=== PATIENT | male | born 1960 | race American Indian/Alaskan Native ===

== ENCOUNTER 2018-12-25 13:26 | Emergency (ER) | payer BC ==
[~2018-12-25] VITALS: Ht 175.3 cm; Wt 102.1 kg
[~2018-12-25 13:26] MED LIST: ATOR10 PO; CHOL10002; CIPR500 PO; CIPRO500 MG PO; DIAZ5 PO; Daily Multiple1 EACH PO; Flagyl500 MG PO; Flomax0.4 MG PO; HYDACE10B PO; Hair, Skin & N1 EACH; IBUPROFEN200 MG PO; LOSHYD100 PO; METF500 PO; METR500 PO; Norco 5-325 Ta1 EACH PO; ONDA4 PO; ONDA4ODT MM; Percocet 5-3251 EACH PO; TAMS.4ER PO; TRAM50 PO; Zofran Odt4 MG SL
[2018-12-25] MEDS ORDERED: Percocet 5-3251 EACH PO (14:49)
== END 2018-12-25 14:52 | disposition home or self-care (01) ==
LOC: ER 13:26
DX: S20.212A Contusion of left front wall of thorax, initial encounter (principal); W22.8XXA Striking against or struck by other objects, initial encounter; Z79.899 Other long term (current) drug therapy; I10 Essential (primary) hypertension; F41.9 Anxiety disorder, unspecified
CPT/HCPCS: 71101; 99283-25

== ENCOUNTER 2019-05-01 06:24 | Day surgery (SDC) | payer BC ==
[~2019-05-01] VITALS: Ht 175.3 cm; Wt 100.7 kg
--- NOTE | 2019-05-01 09:52 | NUR ---
05/01/19 0952 Paddy Willard PT DENIES ANY PAIN AT THIS TIME. PT REPORTS NAUSEA. PT GIVEN 10MG REGLAN TO HELP. PT REQUESTING NOTHING TO EAT OR DRINK AT THIS TIME. VSS. FAMILY IN ROOM WITH PT. WILL CONTINUE TO MONITOR PT.
--- NOTE | 2019-05-01 10:31 | NUR ---
05/01/19 1031 Charlotte Mejia MEDICATED PT WITH 2.5MG VALIUM PO. WARM BLANKET PROVIDED.
== END 2019-05-01 11:20 | disposition home or self-care (01) ==
LOC: ORSCSDS 06:24
PROVIDERS: Orthopaedic Surgery
PROC: 0LQ14ZZ Repair Right Shoulder Tendon, Percutaneous Endoscopic Approach (ICD-10-PCS; principal; 2019-05-01 07:30)
PROC: 0RNJ4ZZ Release Right Shoulder Joint, Percutaneous Endoscopic Approach (ICD-10-PCS; principal; 2019-05-01 07:30)
PROC: 0RBJ4ZZ Excision of Right Shoulder Joint, Percutaneous Endoscopic Approach (ICD-10-PCS; principal; 2019-05-01 07:30)
DX: M75.41 Impingement syndrome of right shoulder (principal); M75.111 Incomplete rotator cuff tear or rupture of right shoulder, not specified as traumatic; S43.431A Superior glenoid labrum lesion of right shoulder, initial encounter; I10 Essential (primary) hypertension; E11.9 Type 2 diabetes mellitus without complications; E66.9 Obesity, unspecified; Z68.32 Body mass index [BMI] 32.0-32.9, adult; Z79.899 Other long term (current) drug therapy
CPT/HCPCS: 82947; A9270-GY; J0171; J0690; J1100; J1885; J2250; J2405; J2704; J2765; J3010; J7120

== ENCOUNTER 2020-07-30 07:52 | Day surgery (SDC) | payer BC ==
[~2020-07-30] VITALS: Ht 175.3 cm; Wt 96.5 kg
[2020-07-30] MEDS ORDERED: METF500 PO (08:49)
== END 2020-07-30 10:25 | disposition home or self-care (01) ==
LOC: ORSCSDS 07:52
PROVIDERS: Surgery
PROC: 0DJD8ZZ Inspection of Lower Intestinal Tract, Via Natural or Artificial Opening Endoscopic (ICD-10-PCS; principal; 2020-07-30 09:15)
DX: Z12.11 Encounter for screening for malignant neoplasm of colon (principal); Z86.010 Personal history of colon polyps; I10 Essential (primary) hypertension; E78.5 Hyperlipidemia, unspecified; E11.9 Type 2 diabetes mellitus without complications; Z79.84 Long term (current) use of oral hypoglycemic drugs; Z79.899 Other long term (current) drug therapy
CPT/HCPCS: J2405; J2704; J7120

== ENCOUNTER 2021-06-10 09:20 | Day surgery (SDC) | payer BC ==
[~2021-06-10] VITALS: Ht 175.3 cm; Wt 102.7 kg
[~2021-06-10 09:20] MED LIST changes: +LOSARTAN-HCTZ1 EACH PO; -LOSHYD100 PO
--- NOTE | 2021-06-10 09:40 | NUR ---
History, Chart, Medications and Allergies reviewed before start of procedure. Patient confirms NPO status and agrees with scheduled surgery. Patient States Post-Procedure ride home has been arranged with his , Ivelisse.
--- NOTE | 2021-06-10 13:37 | NUR ---
Discharge instructions reviewed with patient. Patient verbalizes understanding. Copy given to patient to take home. GUAZE DRESSING WITH [employer] DRAINAGE. Patient States Post-Procedure ride home has been arranged. Discharged via wheelchair to private car for ride home.
== END 2021-06-10 13:15 | disposition home or self-care (01) ==
LOC: ORSCMMR 09:20 → ORSCSDS 11:00 → ORSCMMR 12:30
PROVIDERS: Surgery
PROC: 06BY0ZC Excision of Hemorrhoidal Plexus, Open Approach (ICD-10-PCS; principal; 2021-06-10 11:00)
DX: K64.5 Perianal venous thrombosis (principal); K64.1 Second degree hemorrhoids; Z86.010 Personal history of colon polyps; E78.5 Hyperlipidemia, unspecified; I10 Essential (primary) hypertension; E11.9 Type 2 diabetes mellitus without complications; H81.09 Meniere's disease, unspecified ear; Z79.899 Other long term (current) drug therapy; Z79.84 Long term (current) use of oral hypoglycemic drugs
CPT/HCPCS: 82947; 88304; A9270; J0330; J1100; J2405; J2704; J3010; J7120

== ENCOUNTER 2021-06-18 17:33 | Emergency (ER) | payer BC ==
[~2021-06-18] VITALS: Ht 175.3 cm; Wt 103.0 kg
[2021-06-18] MEDS ORDERED: Adult Glycerin1 EACH (17:53)
[2021-06-18] MEDS ORDERED: DOCU100 (17:53)
== END 2021-06-18 20:50 | disposition home or self-care (01) ==
LOC: ER 17:33
DX: G89.18 Other acute postprocedural pain (principal); K62.89 Other specified diseases of anus and rectum; K59.00 Constipation, unspecified; Z91.048 Other nonmedicinal substance allergy status; Z79.84 Long term (current) use of oral hypoglycemic drugs; Z79.899 Other long term (current) drug therapy; I10 Essential (primary) hypertension; E78.00 Pure hypercholesterolemia, unspecified; F41.9 Anxiety disorder, unspecified
CPT/HCPCS: 74018; 96374; 96375; 96376; 99283-25; A9270; J1170

== ENCOUNTER → 2024-07-24 | Outpatient (CLI) | payer OTHER ==
[~2024-07-24] MED LIST changes: +Adult Glycerin1 EACH; +DOCU100; +GLYB2.5 PO
[2024-07-24 14:55] LABS: BASOPHILS ABSOLUTE AUTO 0.08 K/mm3 (0.00-0.23); BASOPHILS PERCENT AUTO 1 % (0-2); EOSINOPHILS ABSOLUTE AUTO 0.14 K/mm3 (0.00-0.68); EOSINOPHILS PERCENT AUTO 2 % (0-6); Hematocrit 44.7 % (37.0-53.0); Hemoglobin 15.5 g/dL (13.5-17.5); IMMATURE GRAN ABSOLUTE AUTO 0.02 K/mm3 (0.00-0.10); IMMATURE GRAN PERCENT AUTO 0 % (0-1); LYMPHOCYTES ABSOLUTE AUTO 1.83 K/mm3 (0.84-5.20); LYMPHOCYTES PERCENT AUTO 23 % (21-46); MONOCYTES ABSOLUTE AUTO 0.75 K/mm3 (0.16-1.47); MONOCYTES PERCENT AUTO 9 % (4-13); Mean Corpuscular HGB 31.9 pg (26.0-34.0); Mean Corpuscular HGB Conc 34.7 g/dL (31.5-36.5); Mean Corpuscular Volume 92 fL (80-100); Mean Platelet Volume 9.8 fL (9.1-12.4); NEUTROPHILS ABSOLUTE AUTO 5.19 K/mm3 (1.96-9.15); NEUTROPHILS PERCENT AUTO 65 % (41-73); Platelet Count 313 K/mm3 (150-400); RDW Coefficient Variation 11.9 % (11.7-14.2); RDW Standard Deviation 39.8 fL (35.1-46.3); Red Blood Cell Count 4.86 M/mm3 (4.30-5.90); White Blood Cell Count 8.01 K/mm3 (4.00-11.30)
[2024-07-24 15:14] LABS: Alanine Aminotransfer (ALT/SGP 40 U/L (12-78); Albumin, Blood 3.7 g/dL (3.4-5.0); Albumin/Globulin Ratio 1.1 (0.8-1.8); Alk Phos 42 U/L (50-136); Anion Gap 9 mmol/L (3-11); Aspartate Aminotrans (AST/SGOT 25 U/L (12-37); Bilirubin, Total 0.8 mg/dL (0.1-1.0); Blood Urea Nitrogen 19 mg/dL (8-24); Bun/Creatinine Ratio 24.6 (12.0-20.0); CHOL/HDL RATIO 3.2; CO2, Blood 28 mmol/L (21-32); Calcium, Blood 9.3 mg/dL (8.5-10.1); Chloride, Blood 107 mmol/L (98-108); Cholesterol 139 mg/dL (50-200); Creatinine, Blood 0.77 mg/dL (0.60-1.20); Globulin, Blood 3.3 g/dL (2.2-4.0); Glomerular Filtration Rate 99 (60-); Glucose, Blood 219 mg/dL (70-99); HDL Cholesterol 43 mg/dL (>39); LDL/HDL RATIO 1.4; Low Density Lipoprotein Chol 59 mg/dL (0-110); PSA, %Free 19.7 %; Potassium, Blood 4.3 mmol/L (3.5-5.5); Sodium, Blood 140 mmol/L (136-145); Triglycerides 186 mg/dL (30-160); Very Low Density Lipoprot Chol 37 mg/dL (6-32)
[2024-07-24 15:27] LABS: Microalb/Creat Ratio UR, Rand 7.195 mg/g (0.000-30.000); Microalbumin, Random Urine 11.8 mg/L (0.000-20.000)
== END | disposition home or self-care (01) ==
LOC: LAB SHORT 12:44 → LAB 12:44
PROVIDERS: Nurse Practitioner Family
DX: E11.65 Type 2 diabetes mellitus with hyperglycemia (principal); I10 Essential (primary) hypertension; N40.0 Benign prostatic hyperplasia without lower urinary tract symptoms
CPT/HCPCS: 80053; 80061; 82043; 82570; 83036; 84153; 84154; 85025

== ENCOUNTER 2024-07-31 12:27 | Observation (INO) | payer OTHER ==
[~2024-07-31] VITALS: Ht 175.3 cm; Wt 103.3 kg
[~2024-07-31 12:27] MED LIST changes: -GLYB2.5 PO
[2024-07-31] MEDS ORDERED: Ondansetron HCl 2 MG / ML 2ML Vial IV PRN ×2 (12:45→16:00)
[2024-07-31 13:09] LABS: BASOPHILS ABSOLUTE AUTO 0.06 K/mm3 (0.00-0.23); BASOPHILS PERCENT AUTO 1 % (0-2); EOSINOPHILS PERCENT AUTO 1 % (0-6); Hematocrit 41.6 % (37.0-53.0); Hemoglobin 14.6 g/dL (13.5-17.5); IMMATURE GRAN ABSOLUTE AUTO 0.02 K/mm3 (0.00-0.10); IMMATURE GRAN PERCENT AUTO 0 % (0-1); LYMPHOCYTES ABSOLUTE AUTO 1.93 K/mm3 (0.84-5.20); LYMPHOCYTES PERCENT AUTO 21 % (21-46); MONOCYTES ABSOLUTE AUTO 0.75 K/mm3 (0.16-1.47); MONOCYTES PERCENT AUTO 8 % (4-13); Mean Corpuscular HGB 32.3 pg (26.0-34.0); Mean Corpuscular HGB Conc 35.1 g/dL (31.5-36.5); Mean Corpuscular Volume 92 fL (80-100); Mean Platelet Volume 9.6 fL (9.1-12.4); NEUTROPHILS ABSOLUTE AUTO 6.51 K/mm3 (1.96-9.15); NEUTROPHILS PERCENT AUTO 70 % (41-73); Platelet Count 285 K/mm3 (150-400); RDW Coefficient Variation 11.9 % (11.7-14.2); RDW Standard Deviation 39.8 fL (35.1-46.3); Red Blood Cell Count 4.52 M/mm3 (4.30-5.90); White Blood Cell Count 9.37 K/mm3 (4.00-11.30)
[2024-07-31 13:33] LABS: Albumin, Blood 3.4 g/dL (3.4-5.0); Bilirubin, Total 0.7 mg/dL (0.1-1.0); Bun/Creatinine Ratio 23.4 (12.0-20.0); Creatinine, Blood 0.68 mg/dL (0.60-1.20); Globulin, Blood 3.5 g/dL (2.2-4.0); Potassium, Blood 4.2 mmol/L (3.5-5.5); Total Protein, Blood 6.9 g/dL (6.4-8.2)
[2024-07-31] MEDS ORDERED: Nitroglycerin 1 INCH/GM PKT TOP ONE (14:25)
[2024-07-31] MEDS ORDERED: Acetaminophen 500 MG Tab PO ONE (15:30)
[2024-07-31] MEDS ORDERED: GLYB2.5 PO (15:34)
[2024-07-31] MEDS ORDERED: Diazepam 5 MG Tab PO ONE (15:40)
[2024-07-31] MEDS ORDERED: FLU VACC TS2024-25(6MOS UP)/PF 45 MCG/0.5 ML SYRINGE IM PRN (16:00)
[2024-07-31] MEDS ORDERED: Nitroglycerin 0.4 MG SUBL SL PRN (16:45)
[2024-07-31] MEDS ORDERED: Multivitamins 1 Tab PO SCH (17:00)
--- NOTE | 2024-07-31 18:29 | NUR ---
RN RECEIVED REPORT FROM ORLIN IN THE ER. PT IS ADMITTED FOR CHEST PAIN. CP STARTED TODAY ATR 11:30AM, HE WAS WATCHING TV AND REPORTS FEELING A HEAVINESS IN HIS CHEST. HE WAS TRANSPORTED VIA EMS TO THE ER. ENROUTE HE RECEIVED NITRO/ASA AND HAD GOOD RESULTS. IN THE ER HE HAS REMAINED WITH VSS, INDEPENDENT IN THE ROOM, AND A&O X4 PER NURSE REPORT. HE HAS ORDERS FOR TELE. ROOM AIR. 18G IV TO THE LEFT AC. CHEST XR NORMAL. FIRST TROPONIN WAS 20, REPEAT TROPONIN WAS 22. PMH: HTN, HLD, ANXIETY, DIVERTICULITIS, MENIERE'S DISEASE, TYPE 2 DIABETES CONTROLLED WITH METFORMIN. THIS RN WILL MONITOR PT AND GIVE REPORT TO ONCOMING NURSE.
[2024-07-31 18:37] VITALS: BP 137/78
--- NOTE | 2024-07-31 18:37 | NUR ---
183: MORGAN ARRIVED TO THE MEDICAL FLOOR VIA ER GURNEY PROPELLED BY BUILDING SERVICES TECHNICIAN. HE IS RATING STERNAL CHEST PAIN 09/01. HEART RHYTHYM REGULAR TO AUSCULTATION. PT IS A&O X4, AGREEABLE TO CARE AND PLEASANT WITH STAFF. HE IS ORIENTED TO ROOM AND TO PROCEDURES TO PREVENT FALL, AND TO USE THE CALL LIGHT.
[2024-07-31] MEDS ORDERED: Acetaminophen 325 MG TABLET PO PRN (20:20)
[2024-07-31] MEDS ORDERED: Diazepam 5 MG Tab PO SCH (21:00)
[2024-07-31] MEDS ORDERED: Atorvastatin 10 MG Tab PO SCH (21:00)
[2024-07-31] MEDS ORDERED: Losartan/HCTZ 50-12.5 TAB PO SCH (21:00)
[2024-08-01 04:00] VITALS: BP 126/82
--- NOTE | 2024-08-01 04:15 | NUR ---
SHIFT SUMMARY. PATIENT IS A&OX4. PATIENT IS INDEPENDENT WITH STEADY GAIT. PATIENT ADMITTED FOR CHEST PAIN-PATIENTS PAIN IMPROVED T/O NIGHT AND PATIENT DENIES ANY CHEST PAIN AT THIS TIME. TELEMETRY IS ON c LEADS IN PLACE-NO EVENTED NOTED THIS SHIFT. PATIENTS HAS BEEN NPO SINCE MIDNIGHT FOR STRESS TEST. BED IS LOCKED IN THE LOWEST POSITION c CALL LIGHT IN REACH. CARE IS ONGOING.
[2024-08-01 07:21] VITALS: BP 136/79
[2024-08-01] MEDS ORDERED: Insulin Human Lispro 100 Units/ML 3ML Syringe SC SCH (07:30)
[2024-08-01] MEDS ORDERED: Enoxaparin 40 MG/0.4 ML SYR SC SCH (09:00)
[2024-08-01] MEDS ORDERED: Aspirin 81 MG Chew PO SCH (09:00)
--- NOTE | 2024-08-01 11:36 | NUR ---
PT IS BEING MONITORED FOR CHEST PAIN. AT THIS TIME, PT IS DENYING ANY CHEST HEAVINESS. HE REPORTS THAT PAIN HAS MIGRATED TO THE RIGHT CHEST, ATTRIBUTES IT TO SLEEPING IN HOSPITAL BED, RATING 1/10. AFTER BREAKFAST, RN WILL HOLD LUNCH TRAY PRIOR TO STRESS TEST. ADVISED PT AND AGENCY MANAGER NO CAFFEINE/CHOCOLATE/SODA/TEA PRIOR TO TEST. PT IS AGREEABLE AND STATES UNDERSTANDING. ROOM AIR. IV IN LEFT AC, SALINE LOCKED. BEDREST WITH BP PRIVILEGES. PMH OF ANXIETY. PT STATES HE IS NOT FEELING LIKE HE NEEDS A PRN FOR ANXIETY AT THIS TIME. ABLE TO USE CALL LIGHT APPROPRIATELY. a&O X4.
[2024-08-01] MEDS ORDERED: Regadenoson 0.4 MG/5 ML SYRINGE ONE (12:00)
--- NOTE | 2024-08-01 14:22 | NUR ---
CALL FROM [employer] STATING PATIENT APPEARED TO BE IN [place]ORS[place]. LET HER KNOW PATIENT WAS CURRENTLY HAVIN STRESS TEST DONE.
[2024-08-01 16:06] VITALS: BP 138/82
--- NOTE | 2024-08-01 17:47 | NUR ---
CALL FROM DR SILVA WANTING RESULTS TO STRESS TEST. RESULTS NOT YET AVAILABLE.
--- NOTE | 2024-08-01 18:13 | NUR ---
END OF SHIFT SUMMARY: A&Ox4. PLEASANT AND COOPERATIVE WITH CARE. CALLS APPROPRIATELY AND IS ABLE TO ADVOCATE NEEDS EFFECTIVELY. STRESS TEST COMPLETED TODAY. REPORT OF POSSIBLE TORSADAS DURING STRESS TEST. AWAITING RESULTS AND WILL NOTIFY DR SILVA FOR POTENTIAL DC TODAY. BED IN LOWEST POSITION, CALL LIGHT WITHIN REACH, ALL NEEDS MET. REPORT TO ONCOMING NURSE.
--- NOTE | 2024-08-01 18:37 | NUR ---
NOTIFIED DR SILVA OF STRESS TEST RESULTS BECOMING AVAILABLE. HE IS STILL ON CAMPUS; WILL REVIEW BEDSIDE WITH PATIENT.
--- NOTE | 2024-08-01 19:17 | NUR ---
PATIENT DISCHARGED. PATIENT DISCHARGED BY DAYSHIFT MATTHEW GAVIN-THIS RN REMOVED IV AND PATIENT WALKED OUT OF HOSPITAL WITH AND DAUGHTER. PATIENT TO LEAVE HOSPITAL BY PERSONAL VEHICLE. PATIENT OFFERED A WHEEL CHAIR FOR DISCHARGE-PATIENT REFUSED AND PREFERRED TO WALK OUT. PATIENT LEFT FLOOR WITH STEADY GAIT.
== END 2024-08-01 19:25 | disposition home or self-care (01) ==
LOC: ER 12:27 → ERHOLD 12:28 → MEDS 18:34
PROVIDERS: Emergency Medicine; ADMIT Internal Medicine
DX: R07.89 Other chest pain (principal); E11.9 Type 2 diabetes mellitus without complications; I10 Essential (primary) hypertension; H81.09 Meniere's disease, unspecified ear; Z91.048 Other nonmedicinal substance allergy status; E78.00 Pure hypercholesterolemia, unspecified; Z90.49 Acquired absence of other specified parts of digestive tract; Z79.84 Long term (current) use of oral hypoglycemic drugs; Z79.899 Other long term (current) drug therapy
CPT/HCPCS: 36415; 71046; 78452; 80053; 82947; 83690; 84484; 85025; 93005; 93010; 93017; 96372; 99285-25; A9270; A9500; G0378; J1650; J2785

== ENCOUNTER 2024-08-20 09:56 | Inpatient (IN) | payer OTHER ==
[~2024-08-20] VITALS: Ht 170.2 cm; Wt 100.2 kg
[~2024-08-20 09:56] MED LIST changes: +ATOR40TA PO; +GLYB2.5 PO
[2024-08-20 10:27] LABS: BASOPHILS ABSOLUTE AUTO 0.09 K/mm3 (0.00-0.23); BASOPHILS PERCENT AUTO 1 % (0-2); EOSINOPHILS ABSOLUTE AUTO 0.15 K/mm3 (0.00-0.68); EOSINOPHILS PERCENT AUTO 2 % (0-6); Hematocrit 40.1 % (37.0-53.0); Hemoglobin 14.2 g/dL (13.5-17.5); IMMATURE GRAN ABSOLUTE AUTO 0.03 K/mm3 (0.00-0.10); IMMATURE GRAN PERCENT AUTO 0 % (0-1); LYMPHOCYTES ABSOLUTE AUTO 1.69 K/mm3 (0.84-5.20); LYMPHOCYTES PERCENT AUTO 19 % (21-46); MONOCYTES PERCENT AUTO 9 % (4-13); Mean Corpuscular HGB 32.4 pg (26.0-34.0); Mean Corpuscular HGB Conc 35.4 g/dL (31.5-36.5); Mean Corpuscular Volume 92 fL (80-100); NEUTROPHILS ABSOLUTE AUTO 6.21 K/mm3 (1.96-9.15); NEUTROPHILS PERCENT AUTO 69 % (41-73); Platelet Count 224 K/mm3 (150-400); RDW Coefficient Variation 11.9 % (11.7-14.2); RDW Standard Deviation 39.5 fL (35.1-46.3); Red Blood Cell Count 4.38 M/mm3 (4.30-5.90); White Blood Cell Count 8.97 K/mm3 (4.00-11.30)
[2024-08-20 10:46] LABS: Albumin, Blood 3.6 g/dL (3.4-5.0); Albumin/Globulin Ratio 1.1 (0.8-1.8); Bilirubin, Total 0.7 mg/dL (0.1-1.0); Bun/Creatinine Ratio 27.9 (12.0-20.0); Calcium, Blood 9.2 mg/dL (8.5-10.1); Creatinine, Blood 0.68 mg/dL (0.60-1.20); Globulin, Blood 3.3 g/dL (2.2-4.0); Potassium, Blood 4.1 mmol/L (3.5-5.5); Total Protein, Blood 6.9 g/dL (6.4-8.2)
[2024-08-20] MEDS ORDERED: Nitroglycerin 0.4 MG SUBL SL PRN (13:40)
[2024-08-20] MEDS ORDERED: FLU VACC TS2024-25(6MOS UP)/PF 45 MCG/0.5 ML SYRINGE IM SCH (15:35)
[2024-08-20] MEDS ORDERED: Acetaminophen 325 MG TABLET PO PRN (15:45)
[2024-08-20] MEDS ORDERED: Lactated Ringer's 1,000 ML IV SCH (16:00)
[2024-08-20] MEDS ORDERED: Insulin Human Lispro 100 Units/ML 3ML Syringe SC SCH (16:30)
[2024-08-20] MEDS ORDERED: LOSARTAN-HCTZ1 EAC5 PO (18:04)
[2024-08-20 18:05] VITALS: BP 119/82
--- NOTE | 2024-08-20 18:48 | NUR ---
ADMISSION: PT IS A NEW ADMIT, ARRIVING FROM ER AT APPROX 1755. PT STANDS AND TRANSFERS SELF, IS A&Ox4, ANSWERS QUESTIONS APPROPRIATELY. PT DENIES SOB, O2 SATS >95% ON RA. PT DENIES CP AT THIS TIME, MEDICATED IN ER x1 W/NITRO FOR C/O L SIDE CP, PT GIVEN TYENOL UPON ARRIVAL FOR C/O RESIDUAL HEADACHE. TROPONINS TRENDING UP, CARDIOLOGY CONSULT HAS BEEN CALLED IN, PT's BKFST TRAY TO BE HELD UNTIL CONSULT COMPLETED TOMORROW AM. AT THIS TIME, PT IS SITTING UP IN BED W/MEAL TRAY. CALL LIGHT IN REACH.
--- NOTE | 2024-08-20 20:20 | NUR ---
CRITICAL TROPONIN 359. AWARE. PT'S TROPONIN PEAKED ON PREVIOUS LAB. WILL CONTINUE TO TREND TROPONINS FOR NOW.
[2024-08-20] MEDS ORDERED: Docusate Sodium 100 MG Cap PO SCH (21:00)
[2024-08-20] MEDS ORDERED: Heparin Sodium 5000 Units/ML 1ML MDV SC SCH (21:00)
--- NOTE | 2024-08-20 22:52 | NUR ---
CRITICAL TROPONIN 257. CONTINUES TO TREND DOWN. AWARE.
[2024-08-20 23:15] VITALS: BP 130/92
[2024-08-21] VITALS (14 sets, daily range): BP systolic 108–156; BP diastolic 67–95
[2024-08-21 01:40] LABS: BASOPHILS ABSOLUTE AUTO 0.07 K/mm3 (0.00-0.23); BASOPHILS PERCENT AUTO 1 % (0-2); EOSINOPHILS ABSOLUTE AUTO 0.25 K/mm3 (0.00-0.68); EOSINOPHILS PERCENT AUTO 3 % (0-6); Hematocrit 40.5 % (37.0-53.0); Hemoglobin 14.3 g/dL (13.5-17.5); IMMATURE GRAN ABSOLUTE AUTO 0.05 K/mm3 (0.00-0.10); IMMATURE GRAN PERCENT AUTO 1 % (0-1); LYMPHOCYTES ABSOLUTE AUTO 2.33 K/mm3 (0.84-5.20); LYMPHOCYTES PERCENT AUTO 27 % (21-46); MONOCYTES ABSOLUTE AUTO 0.83 K/mm3 (0.16-1.47); MONOCYTES PERCENT AUTO 9 % (4-13); Mean Corpuscular HGB 32.1 pg (26.0-34.0); Mean Corpuscular HGB Conc 35.3 g/dL (31.5-36.5); Mean Corpuscular Volume 91 fL (80-100); NEUTROPHILS ABSOLUTE AUTO 5.27 K/mm3 (1.96-9.15); NEUTROPHILS PERCENT AUTO 60 % (41-73); Platelet Count 229 K/mm3 (150-400); RDW Coefficient Variation 11.9 % (11.7-14.2); RDW Standard Deviation 39.8 fL (35.1-46.3); Red Blood Cell Count 4.45 M/mm3 (4.30-5.90)
[2024-08-21 01:47] LABS: Albumin, Blood 3.3 g/dL (3.4-5.0); Bilirubin, Total 0.8 mg/dL (0.1-1.0); Bun/Creatinine Ratio 20.4 (12.0-20.0); Creatinine, Blood 0.69 mg/dL (0.60-1.20); Globulin, Blood 3.2 g/dL (2.2-4.0); Potassium, Blood 3.8 mmol/L (3.5-5.5); Total Protein, Blood 6.5 g/dL (6.4-8.2)
--- NOTE | 2024-08-21 02:22 | NUR ---
CRITICAL TROPONIN 1.73 . AWARE.
[2024-08-21] MEDS ORDERED: Atorvastatin 40 MG Tab PO SCH (09:00)
[2024-08-21] MEDS ORDERED: Diazepam 5 MG Tab PO SCH (09:00)
[2024-08-21] MEDS ORDERED: Nitroglycerin 2 MG/20 ML BTL ONE (12:17)
[2024-08-21] MEDS ORDERED: Verapamil HCL 2.5 MG/ML 2ML Injection ONE (12:17)
[2024-08-21] MEDS ORDERED: Heparin Sodium 1000 Units/ML 10ML MDV ONE ×2 (12:17→12:27)
[2024-08-21] MEDS ORDERED: NS 250 ML IV ONE (12:17)
[2024-08-21] MEDS ORDERED: NS 1,000 ML IV ONE ×2 (12:17→12:24)
[2024-08-21] MEDS ORDERED: Midazolam HCl 1MG / ML 2ML Vial ONE (12:24)
[2024-08-21] MEDS ORDERED: FentaNYL Citrate 50 MCG/ML 2 ML Injection ONE (12:24)
--- NOTE | 2024-08-21 12:51 | NUR ---
PT TO SWEEPING COMPOUND BLENDER
--- NOTE | 2024-08-21 18:21 | NUR ---
SHIFT SUMMARY: PT A&Ox4, ANSWERS QUESTIONS APPROPRIATELY, COOPERATIVE W/CARE. PT DENIES SOB, O2 SATS >93% ON RA. PT REPORTED MILD CHEST PAIN EARLIER IN THE SHIFT, STATED IT WAS STILL IMPROVED COMPARED TO YESTERDAY, DECLINED PRN MEDICATION. PT TO/FROM GEOTHERMAL HVAC TECHNICIAN TODAY, PLAN FOR MEDICAL MANAGMENT, ECHO COMPLETED AT BEDSIDE, R RADIAL SITE HAS BEEN RECOVERED WNL, ARMBOARD CONTINUES IN PLACE OVER TRANSPARENT DRESSING. PT CONTINUES INDEPENDENT IN ROOM, IS CAREFUL OF HIS RADIAL SITE. 2 LOOSE BMs TODAY, PROVIDER AWARE. AT THIS TIME, PT IS RESTING BED W/CALL LIGHT IN REACH.
[2024-08-22] VITALS: BP 110/71
[2024-08-22 04:03] LABS: BASOPHILS ABSOLUTE AUTO 0.07 K/mm3 (0.00-0.23); BASOPHILS PERCENT AUTO 1 % (0-2); EOSINOPHILS ABSOLUTE AUTO 0.23 K/mm3 (0.00-0.68); EOSINOPHILS PERCENT AUTO 2 % (0-6); Hematocrit 42.2 % (37.0-53.0); Hemoglobin 14.9 g/dL (13.5-17.5); IMMATURE GRAN ABSOLUTE AUTO 0.03 K/mm3 (0.00-0.10); IMMATURE GRAN PERCENT AUTO 0 % (0-1); LYMPHOCYTES ABSOLUTE AUTO 2.12 K/mm3 (0.84-5.20); LYMPHOCYTES PERCENT AUTO 22 % (21-46); MONOCYTES ABSOLUTE AUTO 0.93 K/mm3 (0.16-1.47); MONOCYTES PERCENT AUTO 9 % (4-13); Mean Corpuscular HGB 32.5 pg (26.0-34.0); Mean Corpuscular HGB Conc 35.3 g/dL (31.5-36.5); Mean Corpuscular Volume 92 fL (80-100); NEUTROPHILS ABSOLUTE AUTO 6.49 K/mm3 (1.96-9.15); NEUTROPHILS PERCENT AUTO 66 % (41-73); Platelet Count 237 K/mm3 (150-400); RDW Coefficient Variation 11.9 % (11.7-14.2); RDW Standard Deviation 39.8 fL (35.1-46.3); Red Blood Cell Count 4.59 M/mm3 (4.30-5.90); White Blood Cell Count 9.87 K/mm3 (4.00-11.30)
[2024-08-22 04:27] LABS: Albumin, Blood 3.3 g/dL (3.4-5.0); Albumin/Globulin Ratio 0.9 (0.8-1.8); Bilirubin, Total 0.9 mg/dL (0.1-1.0); Creatinine, Blood 0.9 mg/dL (0.60-1.20); Globulin, Blood 3.5 g/dL (2.2-4.0); Potassium, Blood 4.5 mmol/L (3.5-5.5); Total Protein, Blood 6.8 g/dL (6.4-8.2)
[2024-08-22 08:45] VITALS: BP 141/82
[2024-08-22] MEDS ORDERED: Isosorbide Mononitrate 30 MG TABCR PO SCH (09:00)
--- NOTE | 2024-08-22 09:06 | NUR ---
NURSING PCU DAYSHIFT: Assumed care of pt at approx 0700. A/O, very pleasant, cooperative w/care. Denies general pain/discomfort. R radial site w/TR band and wrist board in place, site stable w/no bleed/hematoma. Ambulates independently and w/o difficulty. C/O 2/10 LCW discomfort consistent w/pain at admit, tele in place, NSR, SBP 140's prior to a.m. meds, no noted edema. L/S cta t/o, O2 sat mid to upper 90's on RA, denies dyspnea, occ PISTON [employer]ER cough. Abd SNT, BT+, voiding w/o difficulty per pt. PIV x1, s/l. No s/s of acute distress this a.m. Seen by hospitalist team, new d/o received. Pt anticipating discharge home. Provided education on current medical dx and at home care. Pt denies any questions/needs, call light in reach, cont to monitor for changes.
[2024-08-22] MEDS ORDERED: ASPI81CH PO (10:48)
[2024-08-22] MEDS ORDERED: Isosorbide Mono30 MG PO (10:48)
--- NOTE | 2024-08-22 12:00 | NUR ---
NURSING PCU DISCHARGE SUMMARY: Pt has done well t/o the a.m. Discharge home d/o received. Pt and s/o verbalized understanding of all written and verbal discharge instructions. Rx's faxed to [facility] per pt request. PIV dc'd w/cath intact. Will escort from unit with discharge is completed.
== END 2024-08-22 12:37 | disposition home or self-care (01) | DRG 282 ==
LOC: ER 09:56 → PCU 15:29 → ERHOLD 15:29 → PCU 17:49
PROVIDERS: Student in an Organized Health Care Education/Training Program; ADMIT Internal Medicine
PROC: B2111ZZ Fluoroscopy of Multiple Coronary Arteries using Low Osmolar Contrast (ICD-10-PCS; principal; 2024-08-21)
PROC: 4A023N7 Measurement of Cardiac Sampling and Pressure, Left Heart, Percutaneous Approach (ICD-10-PCS; 2024-08-21)
DX: I21.4 Non-ST elevation (NSTEMI) myocardial infarction (principal); I10 Essential (primary) hypertension; E78.00 Pure hypercholesterolemia, unspecified; F41.9 Anxiety disorder, unspecified; H81.09 Meniere's disease, unspecified ear; E11.9 Type 2 diabetes mellitus without complications; I24.9 Acute ischemic heart disease, unspecified; I51.4 Myocarditis, unspecified; Z90.49 Acquired absence of other specified parts of digestive tract; Z91.048 Other nonmedicinal substance allergy status; Z79.899 Other long term (current) drug therapy; Z79.84 Long term (current) use of oral hypoglycemic drugs
CPT/HCPCS: 36415; 71046; 76937; 80053; 82947; 84484; 85025; 85379; 86140; 93005; 93010; 93306; 93454; 99152; 99285-25; A9270; C1769; C1887; C1894; J1644; J2250; J3010; J7030; J7050; Q9967

== ENCOUNTER 2025-03-06 06:39 | Day surgery (SDC) | payer OTHER ==
[~2025-03-06] VITALS: Ht 175.3 cm; Wt 101.6 kg
[~2025-03-06 06:39] MED LIST changes: +ASPI81CH PO; +Isosorbide Mono30 MG PO; +LOSARTAN-HCTZ1 EAC5 PO
[2025-03-06 08:57] VITALS: BP 105/74
== END 2025-03-06 09:01 | disposition home or self-care (01) ==
LOC: ORSCSDS 06:39
PROVIDERS: Surgery
PROC: 0DBP8ZX Excision of Rectum, Via Natural or Artificial Opening Endoscopic, Diagnostic (ICD-10-PCS; principal; 2025-03-06 08:00)
DX: K57.30 Diverticulosis of large intestine without perforation or abscess without bleeding (principal); Z86.0100 Personal history of colon polyps, unspecified; K57.90 Diverticulosis of intestine, part unspecified, without perforation or abscess without bleeding; K62.1 Rectal polyp; K64.0 First degree hemorrhoids; Z90.49 Acquired absence of other specified parts of digestive tract; R97.20 Elevated prostate specific antigen [PSA]; E78.5 Hyperlipidemia, unspecified; I10 Essential (primary) hypertension; Z79.82 Long term (current) use of aspirin; Z79.84 Long term (current) use of oral hypoglycemic drugs; Z79.899 Other long term (current) drug therapy
CPT/HCPCS: 82947; 88305; J2704; J7120

== ENCOUNTER → 2025-08-06 | Outpatient (CLI) | payer OTHER ==
[2025-08-06 13:09] LABS: PSA, %Free 25.7 %; PSA, Free 1.940 ng/mL; Prostate Specific Antigen 7.550 ng/mL (0.000-4.000)
== END | disposition home or self-care (01) ==
LOC: LAB 09:01 → LAB SHORT 09:01
PROVIDERS: Student in an Organized Health Care Education/Training Program
DX: R35.0 Frequency of micturition (principal)
CPT/HCPCS: 84153; 84154